=== PATIENT | male | born 1990 | race Caucasian/White ===

== ENCOUNTER 2020-10-01 08:28 | Emergency (ER) | payer OTHER ==
[2020-10-01] MEDS ORDERED: HYDROMORPHONE HCL INJ/PF 2 MG/ML AMPULE IV ONE ×2 (08:36→09:21)
[2020-10-01] MEDS ORDERED: NORMAL SALINE 1000 ML 1,000 ML IV ONE (08:36)
--- NOTE | 2020-10-01 08:44 | ER Document Report ---
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 No pain in flank area. Nausea with vomiting. No fever chills. No dysuria or hematuria. No past history of renal stones or testicular torsion. No trauma reported. Patient arrived by EMS and transport crew noted that they had administered 2 mg of IV Dilaudid and 4 mg of IV Zofran prior to his arrival. Patient reports his pain was initially 10/10 intensity. Currently rated 8/10. - Related Data Allergies/Adverse Reactions: No Known Allergies Allergy (Unverified 10/01/20 09:23) Past Medical History - General Information source: Patient - Social History Smoking Status: Never Smoker Frequency of alcohol use: Rare Drug Abuse: None Occupation: Active duty [employer] Lives with: Family Family History: Reviewed & Not Pertinent - Past Medical History Cardiac Medical History: Reports: Other - Surgical repair of patent foramen ovale Pulmonary Medical History: Reports: None Neurological Medical History: Reports: None Endocrine Medical History: Reports: None Renal/ Medical History: Reports: None Past Surgical History: Reports: Hx Cardiac Surgery - Repair patent foramen ovale Review of Systems - Review of Systems Notes: Constitutional: Negative for fever. HENT: Negative for sore throat. Eyes: Negative for visual changes. Cardiovascular: Negative for chest pain. Respiratory: Negative for shortness of breath. Gastrointestinal: As per HPI. Genitourinary: As per HPI. Musculoskeletal: Negative for back pain. Skin: Negative for rash. Neurological: Negative for headaches, weakness or numbness. 10 point ROS negative except as marked above and in HPI. Physical Exam - Vital signs Vitals: Temp Pulse Resp BP Pulse Ox 97.5 F 72 18 133/87 H 97 10/01/20 08:40 10/01/20 08:40 10/01/20 08:40 10/01/20 08:40 10/01/20 08:40 - Notes Notes: GENERAL: Well-developed well-nourished male approximately stated age appears in moderate discomfort slightly restless. SKIN: Good turgor no rashes. HEAD: Normocephalic atraumatic. EYES: PERRLA. EOMI. Conjunctivae and sclerae clear. EARS: CANALS AND TMS CLEAR. NOSE: CLEAR. MOUTH: Moist mucosa. Good dentition. No stridor or edema. No drooling. NECK: Supple. No masses or thyromegaly. No adenopathy. Carotids 2+ without bruits. No JVD. BACK: Symmetrical without tenderness. CHEST: Respirations unlabored. Breath sounds clear and symmetrical. HEART: Regular rhythm. No murmur gallop or rub. ABDOMEN: Soft nontender without masses, organomegaly or rebound. Bowel sounds normally active. No bruits. GENITALIA: Normal circumcised male. No urethral discharge. No hernia. Exquisitely tender over the posterior aspect of the left testicle. EXTREMITIES: No edema. No calf tenderness. Cap refill less than 1.5 seconds. Dorsalis pedis and posterior tibial pulses 3+ and symmetrical. NEUROLOGICAL: GCS 15. Alert and oriented x3. Normal gait. Fluent speech. Cranial nerves II through XII intact. Sensorimotor and cerebellar normal. Normal tone. PSYCHIATRIC: Appropriate affect. Course - Re-evaluation Re-evalutation: 10/01/20 08:44 Current differential diagnosis includes: Testicular torsion, acute epididymitis, ureterolithiasis. Additional IV Dilaudid and IV normal saline. Labs requested include urinalysis, CBC and basic metabolic profile. We'll get a stat testicular ultrasound. 10/01/20 13:45 Patient received 2 doses of Dilaudid here as well as some Toradol and ultimately his pain was relieved. Ultrasound showed no evidence of a testicular torsion although he does have a small hydrocele. His urinalysis is remarkable for microscopic hematuria. I reviewed the noncontrast CT abdomen pelvis and he appears to have a 2 mm stone in the distal ureter on the left side. Interestingly when I reviewed the radiologist report he states it is on the right side. I think this is erroneous. I attempted to contact the radiologist without success so he could amend his report. Patient is very stable at this time and is taking oral fluids without difficulty. Findings were discussed with him and I am going to refer him to a urologist. Findings, clinical impression and plan of treatment have been discussed with patient/family. Understanding of current findings and recommendations has been acknowledged by them and there is agreement regarding disposition and follow-up. - Vital Signs Vital signs: Temp Pulse Resp BP Pulse Ox 97.5 F 72 18 133/87 H 97 10/01/20 08:40 10/01/20 08:40 10/01/20 08:40 10/01/20 08:40 10/01/20 08:40 - Laboratory Results Result Diagrams: 10/01/20 08:50 10/01/20 08:50 Laboratory Results Interpreted: 10/01/20 10:46 Urine Protein 30 H Urine Blood MODERATE H Leukocyte Esterase Rfl TRACE H Critical Laboratory Results Reviewed: Yes Attending or Supervising Physician who Reviewed Labs: NOÉ NARAYAN - Radiology Results Radiology Results Interpreted: 10/01/20 13:52 Scrotum Ultrasound 10/01/20 08:37 IMPRESSION: 1. Small right hydrocele. 2. Otherwise unremarkable scrotal ultrasound. No evidence of torsion. Abdomen/Pelvis CT 10/01/20 09:22 IMPRESSION: 2 mm stone right UPJ. No hydronephrosis. I reviewed the study I believe the radiology report is erroneous. The stone appears to be on the left side. I attempted to contact the radiologist and was unable to get through to him. Critical Radiology Results Reviewed: Yes Attending or Supervising Physician who Reviewed Radiology: NOÉ NARAYAN Discharge - Discharge Clinical Impression: Nephrolithiasis with renal colic left Condition: Stable Disposition: HOME, SELF-CARE Additional Instructions: Kidney Stone You are passing or have passed a kidney stone. These stones are usually due to increased calcium or uric acid concentrations in your urine. Stones within the kidney itself are not painful. The pain occurs as the stone leaves the kidney to pass down the long tube, called the ureter, leading to the bladder. If the stone is small, it will usually pass by itself. Most patients can pass the stone at home. You will usually receive medications for pain, nausea or vomiting, and sometimes a medication to assist in passing the kidney stone. However, if the pain is very severe or if vomiting prevents you from taking oral pain medications, you may need to return for further treatment. Drink three or four quarts of fluids per day. You will be given pain medication (if needed) and urine strainers. Strain all your urine to see if the stone passes. If your doctor has asked you to bring the stone in for analysis, return with the stone once it has passed. Return if pain or vomiting become severe, if you develop a high fever, if you are unable to pass your urine, or if other unusual symptoms occur. Strain urine specimens with a disposable coffee filter as instructed. You will be provided a work note for the next 3 days. You will be provided the name and contact information for a urologist and you should follow-up with them within the next 1 week. Return here as needed for new or worsening symptoms: Pain that is worsening or unimproved Uncontrolled vomiting High fever or shaking chills Overall worsening Prescriptions: Prednisone [Deltasone 20 mg Tablet] 2 tab PO DAILY 5 Days tablet Oxycodone HCl/Acetaminophen [Percocet 5-325 mg Tablet] 1 tab PO Q4H PRN #15 tablet PRN Reason: Ondansetron [Zofran Odt 4 mg Tablet] 1 - 2 tab PO Q4H PRN #15 tab.rapdis PRN Reason: For Nausea/Vomiting Forms: Return to Work
[2020-10-01 09:12] LABS: ABSOLUTE EOSINOPHILS # (AUTO) 0.1 10^3/uL (0.0-0.6); ABSOLUTE LYMPHOCYTES (AUTO) 1.2 10^3/uL (0.5-4.7); ABSOLUTE MONOCYTES (AUTO) 0.5 10^3/uL (0.1-1.4); ABSOLUTE NEUT (AUTO) 3.5 10^3/uL (1.7-8.2); BASOPHILS % (AUTO) 0.4 % (0-2); EOSINOPHILS % (AUTO) 1.1 % (0-6); HEMATOCRIT 40.6 % (37.9-51.0); HEMOGLOBIN 14.2 g/dL (13.5-17.0); LYMPHOCYTES % (AUTO) 22.1 % (13-45); MEAN CORPUSCULAR HEMOGLOBIN 29.4 pg (27.0-33.4); MEAN CORPUSCULAR HGB CONC 35.1 g/dL (32.0-36.0); MEAN CORPUSCULAR VOLUME 84 fl (80-97); MONOCYTES % (AUTO) 9.6 % (3-13); PLATELET COUNT 231 10^3/uL (150-450); RED BLOOD COUNT 4.84 10^6/uL (4.35-5.55); RED CELL DISTRIBUTION WIDTH 13.2 % (11.5-14.0); SEGMENTED NEUTROPHILS % (AUTO) 66.8 % (42-78); TOTAL CELLS COUNTED % (AUTO) 100 %; WHITE BLOOD COUNT 5.3 10^3/uL (4.0-10.5)
[2020-10-01 09:30] LABS: ANION GAP 7 (5-19); BLOOD UREA NITROGEN 14 mg/dL (7-20); CALCIUM 9.3 mg/dL (8.4-10.2); CARBON DIOXIDE 27 mmol/L (22-30); CHLORIDE 104 mmol/L (98-107); GLUCOSE 110 mg/dL (75-110); POTASSIUM 4.1 mmol/L (3.6-5.0)
--- NOTE | 2020-10-01 10:15 | RADIOLOGY REPORT (SQ) ---
EXAM DESCRIPTION: CT ABD/PELVIS NO ORAL OR IV IMAGES COMPLETED DATE/TIME: 10/01/2020 10:00 am REASON FOR STUDY: flank pain/groin pain COMPARISON: None. TECHNIQUE: CT scan of the abdomen and pelvis performed without intravenous or oral contrast. Images reviewed with lung, soft tissue, and bone windows. Reconstructed coronal and sagittal MPR images revi ewed. All images stored on PACS. All CT scanners at this facility use dose modulation, iterative reconstruction, and/or weight based d osing when appropriate to reduce radiation dose to as low as reasonably achievable (ALARA). [facility]: Dose Right [facility]: CareDose [facility]: Dose Right [facility]: Teradose 4D [facility]: [employer] RADIATION DOSE: CT Rad equipment meets quality standard of care and radiation dose reduction techniq ues were employed. CTDIvol: 6.3 mGy. DLP: 391 mGy-cm.mGy. LIMITATIONS: None. FINDINGS: LOWER CHEST: No significant findings. No nodules or infiltrates. NON-CONTRASTED LIVER, SPLEEN, ADRENALS: Evaluation limited by lack of IV contrast. No identified sign ificant masses. PANCREAS: No masses. No peripancreatic inflammatory changes. GALLBLADDER: No identified stones by CT criteria. No inflammatory changes to suggest cholecystitis. RIGHT KIDNEY AND URETER: No suspicious masses. Assessment limited by lack of IV contrast. 2 mm ston e right UPJ. No hydronephrosis or hydroureter. LEFT KIDNEY AND URETER: No suspicious masses. Assessment limited by lack of IV contrast. 2 mm stone midpole calyx. No hydronephrosis or hydroureter. AORTA AND RETROPERITONEUM: No aneurysm. No retroperitoneal masses or adenopathy. BOWEL AND PERITONEAL CAVITY: No obvious masses or inflammatory changes. No free fluid. APPENDIX: Not visualized. PELVIS, BLADDER, AND ABDOMINAL WALL:No abnormal masses. No free fluid. Bladder normal. BONES: No significant findings. OTHER: No other significant finding. IMPRESSION: 2 mm stone right UPJ. No hydronephrosis. COMMENT: Quality ID # [id number]: Final reports with documentation of one or more dose reduction techniques (e.g., Automated exposure control, adjustment of the mA and/or kV according to patient size, use of iterative reconstruction technique) TECHNICAL DOCUMENTATION: JOB ID: [id number] 2010 [employer]- All Rights Reserved Reading location - IP[facility]workstation name: [email or web address]
--- NOTE | 2020-10-01 10:27 | RADIOLOGY REPORT (SQ) ---
EXAM DESCRIPTION: U/S SCROTUM W/DOPPLER IMAGES COMPLETED DATE/TIME: 10/01/2020 10:14 am REASON FOR STUDY: Left scrotal pain; rule out torsion COMPARISON: None. TECHNIQUE: Static and realtime beard scale imaging of the scrotum and testes. Selected color Doppler and spectral images recorded to document blood flow. LIMITATIONS: None. FINDINGS: RIGHT: TESTICLE: Normal size. Normal echotexture. Normal blood flow. No mass. EPIDIDYMIS: Normal. HYDROCELE OR VARICOCELE: Trace hydrocele. HERNIA OR EXTRA-TESTICULAR MASS: No. OTHER: No other significant finding. LEFT: TESTICLE: Normal size. Normal echotexture. Normal blood flow. No mass. EPIDIDYMIS: Normal. HYDROCELE OR VARICOCELE: No. HERNIA OR EXTRA-TESTICULAR MASS: No. OTHER: No other significant finding. IMPRESSION: 1. Small right hydrocele. 2. Otherwise unremarkable scrotal ultrasound. No evidence of torsion. TECHNICAL DOCUMENTATION: JOB ID: [id number] 2010 [employer]- All Rights Reserved Reading location - IP/workstation name: [email or web address]
[2020-10-01] MEDS ORDERED: DIPHENHYDRAMINE HCL 50 MG/ML VIAL IV ONE (10:41)
[2020-10-01] MEDS ORDERED: KETOROLAC TROMETHAMINE INJ/PF 30 MG/1 ML SDV IV ONE (10:42)
[2020-10-01 11:18] LABS: APPEARANCE,URINE SLIGHTLY-CLOUDY; BILIRUBIN,URINE NEGATIVE (NEGATIVE); COLOR,URINE YELLOW; GLUCOSE, URINE NEGATIVE (NEGATIVE); KETONES,URINE NEGATIVE (NEGATIVE); PROTEIN,URINE 30 mg/dL (NEGATIVE); URINE SPECIFIC GRAVITY 1.021; UROBILINOGEN,URINE NEGATIVE mg/dL (<2.0)
[2020-10-01] MEDS ORDERED: METHYLPREDNISOLONE INJ 125 MG/2 ML SDV IV ONE (12:50)
[2020-10-01 14:33] VITALS: BP 105/60
== END 2020-10-01 14:33 | disposition home or self-care (01) ==
LOC: ER 08:28
DX: N20.0 Calculus of kidney (principal); N43.3 Hydrocele, unspecified; R31.29 Other microscopic hematuria; N50.812 Left testicular pain
CPT/HCPCS: 99285; 96361; 96374; 96375; 36415; 87086; 85025; 87088; 80048; 81001; 76870; 93976; 74176; J1200; J2930; J1885; J1170; J7030